=== PATIENT | male | born 1985 | race Caucasian/White ===

== ENCOUNTER 2023-08-16 22:33 | Emergency (ER) | payer MEDICAID ==
[~2023-08-16] VITALS: Ht 182.9 cm; Wt 89.4 kg
[~2023-08-16 22:33] MED LIST: IBUP-1985 PO; OMEP20CA15 PO
[2023-08-16] MEDS ORDERED: CEFD300C3 PO (22:57)
[2023-08-16 23:15] VITALS: BP 140/95; PULSE 93; RESP 18; TEMP 98.1; O2SAT 98
== END 2023-08-16 23:16 | disposition home or self-care (01) ==
LOC: ER 22:33
DX: J02.9 Acute pharyngitis, unspecified (principal)
CPT/HCPCS: 99283